=== PATIENT | female | born 1955 | race Caucasian/White ===

== ENCOUNTER 2023-02-06 14:15 | Outpatient (AMB) | payer OTHER, SELFPAY ==
[2023-02-06 14:36] VITALS: BMI 44.3
--- NOTE | 2023-02-06 14:36 | MHC.AMNUTRGE ---
Intake VS Expanded 02/06/23 14:36 02/14/23 20:23 Height 5 ft 10 in 5 ft 10 in Weight 309 lb 1.409 oz 309 lb BMI 44.3 44.3 Intake Visit Reasons: Fatty Liver, Hyperlipidemia, Morbid Obesity Medication List - Last Reconciled 02/14/[address], LDN atorvastatin 10 mg PO DAILY dulaglutide (Trulicity) 1.5 mg subcut QWEEK glipizide ER 2.5 mg PO DAILY lisinopril 10 mg PO DAILY metoprolol succinate ER 25 mg PO BID spironolacton-hydrochlorothiaz 25-25 mg 1 tab PO DAILY HPI Nutrition Presentation Details Pt presents for MNT for T2DM, hyperlipidemia, fatty liver, CKD stage 3. Pt was referred by Moraima Paris N. Kalnanieks, PA from [facility] Typical meal intake 11 am B: coffee with milk and sugar , crackers and boiled eggs, or bread with tuna with medeiros/tomato L: rice/beans, pork chops ,water D: fried chicken/rice/beans and water snacks: snack: ham/turkey slice and crackers ritz etoh: denies smoking: denies exercise: stretches food frequency fruits: 0-1/d veg : 0-2 serving/d fish: not including dairy: 3 + (cheese mainly) fried foods : daily beverages: water, juices, coffee Pt did not bring glucometer to this appt Pt on Trulicity 1.5 mg/wk and Glipizide ER 2.5 mg/d AUJ-Jmpgwao-Gm.Jeor Equation Height 5 ft 10 in Weight 309 lb Resting Metabolic Rate 2020.81 Calculated Activity Level Sedentary Calories Needed to Maintain Weight 2424.97 Diagnosis Nutrition problem #1 food nutri know defi As related to (etiology) #1 diagnosis As evidenced by (sign/symptom) #1 food recall Monitoring/Goals Nutrition problem monitoring level of knowledge/skill and glucose, fasting Nutrition goal/outcome list 3 CHO foods Learning/Education Readiness to learn good Stages of change preparation Educational materials provided Yes (meal plan) Most Recent Diabetes Results: No Data to Display [facility] Surgical History (Updated 02/14/23 @ 20:[address], LDN) History of lumpectomy of right breast Assessment & Plan Assessment & Plan (1) T2DM (type 2 diabetes mellitus): Code(s): E11.9 - Type 2 diabetes mellitus without complications Plan: wt: 140 kg Est kcal needs as per MSJ: 2400 (40% carb, 30% protein/fat) Est fluid needs as per 30 ml/d: 4200 Est prot per day as per 1 g/kg bw: 140g Recommend fiber intake : 8-10 g per day and gradually increase to 25-28 g per day for women and 35-38 g for men or as tolerated Recommend sodium intake per day : less than 2000 mg Educated patient on: ( R = reviewed V = verbalizes understanding N/R = needs review N/A = not applicable Food sources of carbohydrate, adequate serving sizes and its role in various health conditions: R Differences between complex carbohydrates a simple carbohydrates, role of fiber in diet: NR Differences between types of fats and role in diet (mono on saturated fat fatty acids, saturated fatty acids, trans fats): R basic Food sources of sodium in salt and healthy modifications for heart health in kidney health: NR Vitamins and minerals: NR Healthy plate method concept: R Physical activity: Benefits a precaution: R Hypoglycemia protocol (rule of 15): R Dietary prevention of Hyperglycemia: R Patient Instructions: Have baked poultry twice a week instead of fried/deep fried Reduce on total carb at meal to 80 g carbs following healthy plate method Practice mindful eating monitor your blood sugar fasting and 2 hours after a meal , bring record to next follow up for review Coding Level of Care Code Nutr Indiv Intake (07080) Diagnoses T2DM (type 2 diabetes mellitus) E11.9 Time Spent (min) 30
[2023-02-14 20:23] VITALS: BMI 44.3
== END 2023-02-06 15:10 | disposition home or self-care (01) ==
PROVIDERS: PCP Physician Assistant; Visit Provider Dietitian, Registered
DX: E11.9 Type 2 diabetes mellitus without complications (principal)

== ENCOUNTER → 2023-02-06 14:15 | Outpatient (BNVA) | payer OTHER, SELFPAY | PROVIDERS: PCP Physician Assistant; Visit Provider Dietitian, Registered | DX: E11.22 Type 2 diabetes mellitus with diabetic chronic kidney disease (principal); N18.30 Chronic kidney disease, stage 3 unspecified; Z71.3 Dietary counseling and surveillance | CPT/HCPCS: 97802 ==

== ENCOUNTER 2023-04-17 10:27 | Outpatient (AMB) | payer OTHER, SELFPAY ==
[2023-04-17 10:32] VITALS: BMI 44.0
--- NOTE | 2023-04-17 10:32 | A.OFFVIS_ITS ---
Intake VS Expanded 04/17/23 10:32 Height 5 ft 10 in Weight 306 lb 14.135 oz BMI 44.0 Intake Visit Reasons: T2DM/CONFIRMED HPI Nutrition Presentation Details Pt presents for MNT for T2DM, hyperlipidemia, fatty liver, CKD stage 3. Pt was referred by Moraima Paris N. Kalnanieks, PA from [facility] Pt has true track glucometer, it shows her 14 d bg average at 174 mg/dl ,fasting blood glucose 92-190 mg/dl ,2 hours after a meal range between 160-223 Pt reports gradual diet modifications, understands relationship of food to bg Reports following healthy plate method the majority of the time Most Recent Diabetes Results: No Data to Display [facility] Surgical History (Updated 02/14/23 @ 20:[address], LDN) History of lumpectomy of right breast Assessment & Plan Assessment & Plan (1) T2DM (type 2 diabetes mellitus): Code(s): E11.9 - Type 2 diabetes mellitus without complications Plan: wt: 140 kg (139 on 04/2023) Est kcal needs as per MSJ: 2400 (40% carb, 30% protein/fat) Est fluid needs as per 30 ml/d: 4200 Est prot per day as per 1 g/kg bw: 140g Recommend fiber intake : 8-10 g per day and gradually increase to 25-28 g per day for women and 35-38 g for men or as tolerated Recommend sodium intake per day : less than 2000 mg Educated patient on: ( R = reviewed V = verbalizes understanding N/R = needs review N/A = not applicable * Food sources of carbohydrate, adequate serving sizes and its role in various health conditions: R * Differences between complex carbohydrates a simple carbohydrates, role of fiber in diet: NR * Differences between types of fats and role in diet (mono on saturated fat fatty acids, saturated fatty acids, trans fats): R basic * Food sources of sodium in salt and healthy modifications for heart health in kidney health: NR * Vitamins and minerals: NR * Healthy plate method concept: R * Physical activity: Benefits a precaution: R * Hypoglycemia protocol (rule of 15): R * Dietary prevention of Hyperglycemia: R Patient Instructions: Work on choosing low salt seasonings and alternative on food flavors - see list of lower salt food options - work on reducing frequency foods with batters and intake of highly processed foods Aim at consuming fish at least twice per week Coding Level of Care Code Nutr Indiv Subseq (70117) Diagnoses T2DM (type 2 diabetes mellitus) E11.9 Time Spent (min) 30
== END 2023-04-17 11:14 | disposition home or self-care (01) ==
PROVIDERS: PCP Physician Assistant; Visit Provider Dietitian, Registered
DX: E11.9 Type 2 diabetes mellitus without complications (principal)

== ENCOUNTER → 2023-04-17 10:27 | Outpatient (BNVA) | payer OTHER, SELFPAY | PROVIDERS: PCP Physician Assistant; Visit Provider Dietitian, Registered | DX: E11.9 Type 2 diabetes mellitus without complications (principal); Z71.3 Dietary counseling and surveillance | CPT/HCPCS: 97803 ==

== ENCOUNTER 2023-06-20 13:21 | Outpatient (AMB) | payer OTHER, SELFPAY ==
[2023-06-20 13:34] VITALS: BMI 43.4
--- NOTE | 2023-06-20 13:34 | A.OFFVIS_ITS ---
Intake VS Expanded 06/20/23 13:34 Height 5 ft 10 in Weight 302 lb 7.587 oz BMI 43.4 Intake Visit Reasons: T2DM/LVM HPI Nutrition Presentation Details Pt presents for MNT f/u for T2DM Pt did not bring glucometer to this appointment Pt reports her blood glucose continues elevated , from 150-200s Pt was advised to contact doctor for further asessment Typical meal coffee and 2 crackers 11 am banana 1pm chicken breaded and pasta mac cheese 4-5 pm rice/beans, chicken , onions, roselyn er 9pm rice krispies with milk or fruit sm oothie (3-4 fruits ) Most Recent Diabetes Results: No Data to Display COUNT INCLUDES [facility] Surgical History (Updated 02/14/23 @ 20:[address], LDN) History of lumpectomy of right breast Assessment & Plan Assessment & Plan (1) T2DM (type 2 diabetes mellitus): Code(s): E11.9 - Type 2 diabetes mellitus without complications Plan: wt: 140 kg (139 on 04/2023), 137 kg (06/2023) Est kcal needs as per MSJ: 2400 (40% carb, 30% protein/fat) Est fluid needs as per 30 ml/d: 4200 Est prot per day as per 1 g/kg bw: 140g Recommend fiber intake : 8-10 g per day and gradually increase to 25-28 g per day for women and 35-38 g for men or as tolerated Recommend sodium intake per day : less than 2000 mg Educated patient on: ( R = reviewed V = verbalizes understanding N/R = needs review N/A = not applicable * Food sources of carbohydrate, adequate serving sizes and its role in various health conditions: R * Differences between complex carbohydrates a simple carbohydrates, role of fiber in diet: R * Differences between types of fats and role in diet (mono on saturated fat fatty acids, saturated fatty acids, trans fats): R basic * Food sources of sodium in salt and healthy modifications for heart health in kidney health: NR * Vitamins and minerals: NR * Healthy plate method concept: R * Physical activity: Benefits a precaution: R * Hypoglycemia protocol (rule of 15): R * Dietary prevention of Hyperglycemia: R Patient Instructions: Work on measuring food portion sizes and watching your total carbs to less than 60 g at meal and 0-20 g as snack at bedtime MOnitor your blood sugar fasting and 2 hours after a meal - report your blood sugar to your primary care provider (remember goal for fasting blood sugar 80-130 and 2 hours after a meal 80-180 as per ADA unless otherwise specified by your doctor) Coding Level of Care Code Nutr Indiv Subseq (91028) Diagnoses T2DM (type 2 diabetes mellitus) E11.9 Time Spent (min) 30
== END 2023-06-20 14:09 | disposition home or self-care (01) ==
PROVIDERS: PCP Physician Assistant; Visit Provider Dietitian, Registered
DX: E11.9 Type 2 diabetes mellitus without complications (principal)

== ENCOUNTER → 2023-06-20 13:21 | Outpatient (BNVA) | payer OTHER, SELFPAY | PROVIDERS: PCP Physician Assistant; Visit Provider Dietitian, Registered | DX: E11.9 Type 2 diabetes mellitus without complications (principal); Z71.3 Dietary counseling and surveillance | CPT/HCPCS: 97803 ==